=== PATIENT | female | born 2000 | race Caucasian/White ===

== ENCOUNTER 2022-10-17 05:03 | Emergency (ER) | payer OTHER, SELFPAY ==
--- NOTE | ~2022-10-17 | CT_ITS ---
EXAMINATION: CT abdomen pelvis wo con DATE: 10/17/2022 06:32 INDICATION: Left lower quadrant abdominal pain. Kidney stones. Vomiting. TECHNIQUE: Computed tomography (CT) of the abdomen and pelvis was performed without intravenous contr ast. Automated exposure control and iterative reconstruction technique were employed. The dose-length product was 318.36 mGy-cm. COMPARISON: None. FINDINGS: The visualized portions of the lung bases are clear without pneumonia or pleural effusion. The heart size is normal. No pericardial effusion. The liver, gallbladder, spleen, pancreas, adrenal glands, and right kidney are normal. There is mild left hydronephrosis and hydroureter. There is a 5 mm stone in distal left ureter. There are no dilated loops of bowel. The appendix is normal. There ar e no pathologically enlarged lymph nodes. There is no free intraperitoneal fluid. 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 IMPRESSION: 1. 5 mm stone in distal left ureter with mild left hydronephrosis and hydroureter. Reviewed, dictated and finalized at location A. IMPRESSION: 1. 5 mm stone in distal left ureter with mild left hydronephrosis and hydrouret er.
[2022-10-17 05:06] VITALS: BP 151/90; PULSE 72; RESP 14; TEMP 36.6; O2SAT 100
--- NOTE | 2022-10-17 05:39 | ED.ABDPAIN ---
HPI - Abdominal Pain General Chief Complaint: Abdominal Pain <Tony Arce MD - Last Filed: 10/17/22 05:41> Stated Complaint: kidney stone? <Tony Arce MD - Last Filed: 10/17/22 05:41> Time Seen by Provider: 10/17/22 05:30 <Tony Arce MD - Last Filed: 10/17/22 05:41> History of Present Illness HPI narrative: Patient is a 22-year-old female who presents ER with concerns of passing a kidney stone. Began having some flank pain 3 days ago. Increased today and is moving into the abdomen. Has some urinary frequency. No dysuria. No hematuria. Denies fevers or chills or sweats. She has had increased nausea this evening which is new. Patient also reports new rash to her right groin over the last week. 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 The skin is irritated and there is white discharge. <Tony Arce MD - Last Filed: 10/17/22 05:41> Related Data Home Medications: Home Medications Medication Instructions Recorded Confirmed norethindrone 1 mg-ethinyl 1 tablet PO DAILY 09/14/21 09/14/21 estradiol 20 mcg (21)-iron 75 mg (7) tablet (06/08 (28)) <Tony Arce MD - Last Filed: 10/17/22 05:41> Allergies/Adverse Reactions: Allergies Allergy/AdvReac Type Severity Reaction Status Date / Time No Known Allergies Allergy Unverified 09/14/21 13:30 <Tony Arce MD - Last Filed: 10/17/22 05:41> Review of Systems Review of Systems: All systems reviewed & are unremarkable except as noted in HPI and below <Tony Arce MD - Last Filed: 10/17/22 05:41> Constitutional: Constitutional: Denies chills and Denies fever(s) <Tony Arce MD - Last Filed: 10/17/22 05:41> Gastrointestinal: Gastrointestinal: Reports abdominal pain, Denies constipation, Denies diarrhea, Reports nausea and Denies vomiting <Tony Arce MD - Last Filed: 10/17/22 05:41> Genitourinary: Genitourinary: Denies hematuria, Reports nocturia, Denies dysuria and Reports flank pain <Tony Arce MD - Last Filed: 10/17/22 05:41> Integumentary/Breasts: Skin/Breast: Reports rash (Right inguinal crease, malodorous and moist) <Tony Arce MD - Last Filed: 10/17/22 05:41> PMFSH Past Medical History Medical History: Medical History (Updated 10/17/22 @ 08:16 by Gwyn Santos MD) Irregular periods Kidney stones <Tony Arce MD - Last Filed: 10/17/22 05:41> Surgical History Surgical History: Surgical History History of right salpingo-oophorectomy 12/10/19 rt adnexal mass <Tony Arce MD - Last Filed: 10/17/22 05:41> Family History Family History: Family History Mother Chronic obstructive lung disease Hypertension Asthma Father Cerebrovascular accident Acute myocardial infarction Seizure <Tony Arce MD - Last Filed: 10/17/22 05:41> Social History Social History: Social History (Updated 09/14/21 @ 13:32 by JONATHAN العراقي) Smoking status: Current some day smoker Tobacco type: e-cigarettes/vaping Alcohol intake: never Substance use: never Substance use type: does not use Living arrangements: with family Additional living arrangements comments: single Occupation/Education: unemployed Gender identity (if verbalized by the patient): Female Sexual Orientation (if Verbalized by the Patient): Straight or Heterosexual <Tony Arce MD - Last Filed: 10/17/22 05:41> Exam Narrative: GENERAL: Well-appearing, well-nourished, and in no acute distress. HEAD: Normocephalic, atraumatic. ENT: Mucous membranes moist. NECK: Supple. CHEST: Clear to auscultation. No respiratory distress. HEART: Regular rate and rhythm. Normal peripheral pulses. ABDOMEN: Soft, nontender, nondist
[2022-10-17] MEDS: SODIUM CHLORIDE 0.9% IV 1,000 ML 999 ML IV CONT (06:11)
[2022-10-17] MEDS: ONDANSETRON INJ 4 MG/2 ML VIAL IV PUSH (06:12)
[2022-10-17] MEDS: MORPHINE SULFATE (*CRX) 4 MG/ML INJ IV PUSH (06:12)
[2022-10-17 06:27] LABS: Basophils Absolute Auto 0.1 K/mm3 (0.0-0.1); Basophils Percent Auto 0.6 % (0.2-1.2); Eosinophils Absolute Auto 0.2 K/mm3 (0-0.3); Hematocrit 35.9 % (37.0-47.0); Hemoglobin 11.7 g/dL (12.0-15.0); Immature Granulocyte Absolute 0.05 K/mm3 (0.00-0.031); Immature Granulocyte Percent A 0.5 % (0-0.5); Lymphocytes Absolute Auto 1.96 K/mm3 (0.9-3.2); Lymphocytes Percent Auto 18.5 % (18.3-44.2); Mean Corpuscular HGB Conc 32.6 g/dl (32-36); Mean Corpuscular Volume 88.9 fl (80-100); Mean Platelet Volume 9.7 fl (7.4-10.4); Monocytes Absolute Auto 0.5 K/mm3 (0.1-0.6); Neutrophils Absolute Auto 7.8 K/mm3 (1.3-6.7); Neutrophils Percent Auto 73.4 % (45.5-73.1); Platelet Count Result 339 k/mm3 (150-375); Red Blood Count 4.04 M/mm3 (4.2-5.4); Red Cell Distribution Width 13.3 % (11.5-14.5); White Blood Count 10.6 K/mm3 (4.5-10.0)
[2022-10-17 06:50] LABS: Alanine Aminotransferase 17 U/L (6-35); Albumin Level 4.4 g/dL (3.5-5.1); Alkaline Phosphatase 66 U/L (38-126); Anion Gap 9 mmol/L (8-16); Aspartate Amino Transferase 16 U/L (14-36); Bilirubin,Total 0.3 mg/dL (0.2-1.3); Blood Urea Nitrogen 10 mg/dL (7-17); Calcium 9.1 mg/dL (8.4-10.2); Carbon Dioxide 23 mmol/L (22-30); Chloride 108 mmol/L (98-107); Estimated CRCL calculation 106 ml/min; Estimated Glomerular Filt Rate > 60; Glucose 108 mg/dL (65-110); Lipase 110 U/L (23-300); Sodium 140 mmol/L (137-145)
[2022-10-17 06:57] LABS: Bacteria Urine 4+ /hpf; Need Manual Microscopic Reviewed; RBC Urine >100 /hpf (0-2); Squamous Epithelial Cell Urine Moderate /hpf (Few); WBC Urine 21-50 /hpf
[2022-10-17 06:58] LABS: Add Urine Microscopic? YES; Appearance Urine Turbid (Clear); Bilirubin Urine Negative (Negative); Blood Urine 3+ (Negative); Color Urine Light Orange (Yellow); Glucose Urine UA Negative (Negative); Ketones Urine Trace mg/dL (Negative); Leukocyte Esterase Ur 1+ LEU/UL (Negative); Nitrate Urine Negative (Negative); Protein Urine 1+ mg/dL (Negative); Specific Grav Ur 1.024 (1.001-1.035); pH Urine 5.5 (5.0-9.0)
[2022-10-17 07:10] VITALS: BP 140/76; PULSE 65; RESP 15; O2SAT 100
[2022-10-17 08:48] VITALS: BP 131/74; PULSE 86; RESP 16; O2SAT 98
== END 2022-10-17 08:50 | disposition home or self-care (01) ==
PROVIDERS: Emergency Medicine; Emergency Provider Emergency Medicine
DX: N13.2 Hydronephrosis with renal and ureteral calculous obstruction (principal); F17.290 Nicotine dependence, other tobacco product, uncomplicated; Z87.442 Personal history of urinary calculi; Z90.721 Acquired absence of ovaries, unilateral; Z90.79 Acquired absence of other genital organ(s)
CPT/HCPCS: 36415; 74176; 80053; 81001; 81025; 83690; 85025; 87086; 87088; 96361; 96374; 96375; 99284; J0696; J2270; J2405; J7030